=== PATIENT | female | born 1950 ===

== ENCOUNTER → 2025-03-31 | Outpatient (REF) | payer SELFPAY ==
[2025-03-31 17:08] LABS: BASO # 0.1 10^3/uL (0.0-0.2); BASO % 0.9 % (0.0-1.0); EOS # 0.3 10^3/uL (0.0-0.5); EOS % 3.9 % (0.0-3.0); LYMPH # 1.6 10^3/uL (1.5-5.0); LYMPH % 23.8 % (24.0-44.0); MONO # 0.8 10^3/uL (0.0-0.8); MONO % 11.6 % (2.0-8.0); NEUTROPHILS # 4.1 10^3/uL (1.5-8.5); NEUTROPHILS % 59.5 % (36.0-66.0); PLATELET COUNT, AUTOMATED 324 10^3/uL (150-450)
[2025-03-31 17:21] LABS: ERYTHROCYTE SEDIMENTATION RATE 69 mm/hr (0-30)
[2025-03-31 17:35] LABS: ALT/SGPT 18 U/L (7.0-40); AST/SGOT 26 U/L (<34); C REACTIVE PROTEIN QUANTITATIV < 0.50 MG/DL (<1.0); CREATININE FOR GFR 0.53 MG/DL (0.55-1.30); GLOMERULAR FILTRATION RATE > 90.0 (>39)
== END ==
LOC: M LAB REF 16:09
PROVIDERS: ATTEND Student in an Organized Health Care Education/Training Program
DX: K75.0 Abscess of liver (principal); B95.1 Streptococcus, group B, as the cause of diseases classified elsewhere; B96.20 Unspecified Escherichia coli [E. coli] as the cause of diseases classified elsewhere

== ENCOUNTER → 2025-04-06 | Outpatient (REF) | payer SELFPAY ==
[2025-04-06 13:03] LABS: BASO # 0.1 10^3/uL (0.0-0.2); BASO % 1.0 % (0.0-1.0); EOS # 0.1 10^3/uL (0.0-0.5); EOS % 1.0 % (0.0-3.0); LYMPH # 0.9 10^3/uL (1.5-5.0); LYMPH % 18.8 % (24.0-44.0); MONO # 0.8 10^3/uL (0.0-0.8); MONO % 16.5 % (2.0-8.0); NEUTROPHILS # 3.0 10^3/uL (1.5-8.5); NEUTROPHILS % 62.1 % (36.0-66.0); PLATELET COUNT, AUTOMATED 256 10^3/uL (150-450)
[2025-04-06 13:12] LABS: ERYTHROCYTE SEDIMENTATION RATE 76 mm/hr (0-30)
[2025-04-06 13:31] LABS: C REACTIVE PROTEIN QUANTITATIV 1.18 MG/DL (<1.0)
[2025-04-06 13:32] LABS: ALT/SGPT 20 U/L (7.0-40); AST/SGOT 35 U/L (<34); CREATININE FOR GFR 0.52 MG/DL (0.55-1.30); GLOMERULAR FILTRATION RATE > 90.0 (>39)
== END ==
LOC: M LAB REF 12:36
PROVIDERS: ATTEND Student in an Organized Health Care Education/Training Program
DX: K75.0 Abscess of liver (principal); B95.1 Streptococcus, group B, as the cause of diseases classified elsewhere; B96.20 Unspecified Escherichia coli [E. coli] as the cause of diseases classified elsewhere